=== PATIENT | male | born 1960 | race Caucasian/White ===

== ENCOUNTER 2019-08-02 12:24 | Emergency (ER) | payer MEDICARE ==
[~2019-08-02] VITALS: Ht 167.6 cm; Wt 72.0 kg
[~2019-08-02 12:24] MED LIST: CYCL-1 PO; GABA-338 PO; OMEP-84 PO; OMEP20TA23 PO; TRAM50TA2 PO
[2019-08-02 12:58] LABS: BASOPHILS % (AUTO) 0.6 % (0-1); EOSINOPHILS # (AUTO) 0.1 X10'3 (0-0.9); EOSINOPHILS % (AUTO) 1.9 % (0-6); HEMATOCRIT 47.3 % (42.0-52.0); HEMOGLOBIN 15.9 g/dl (14.0-17.9); LYMPHOCYTES # (AUTO) 1.9 X10'3 (1.1-4.8); LYMPHOCYTES % (AUTO) 24.7 % (21-51); MEAN CORPUSCULAR HEMOGLOBIN 30.8 PG (27.0-31.0); MEAN CORPUSCULAR HGB CONC 33.7 g/dL (33.0-36.5); MEAN CORPUSCULAR VOLUME 91.2 FL (78-98); MEAN PLATELET VOLUME 9.2 FL (7.4-10.4); MONOCYTES # (AUTO) 0.6 X10'3 (0-0.9); MONOCYTES % (AUTO) 8.6 % (2-12); NEUTROPHILS # (AUTO) 4.9 X10'3 (1.8-7.7); NEUTROPHILS % (AUTO) 64.2 % (42-75); PLATELET COUNT 152 X10'3 (140-440); RED BLOOD COUNT 5.19 X10'6 (4.70-6.10); RED CELL DISTRIBUTION WIDTH 13.3 % (11.5-14.5); WHITE BLOOD COUNT 7.6 X10'3 (4.5-11.0)
[2019-08-02 13:19] LABS: ALANINE AMINOTRANSFERASE 50 U/L (12-78); ALBUMIN 3.9 G/DL (3.4-5.0); ALBUMIN/GLOBULIN RATIO 1.1 (1.1-1.5); ALKALINE PHOSPHATASE 100 IU/L (46-116); ANION GAP 8 (8-16); ASPARTATE AMINO TRANSFERASE 32 U/L (10-37); BILIRUBIN,TOTAL 0.5 MG/DL (0.1-1.0); BLOOD UREA NITROGEN 21 MG/DL (7-18); BUN/CREATININE RATIO 21.6 (5.4-32.0); CALCIUM 9.2 MG/DL (8.5-10.1); CHLORIDE 104 MMOL/L (99-107); CREATININE 0.97 MG/DL (0.60-1.10); GLUCOSE 214 MG/DL (70-104); POTASSIUM 3.7 MMOL/L (3.5-5.1); SODIUM 138 MMOL/L (135-145); TOTAL CARBON DIOXIDE 25.7 MMOL/L (24-32); TOTAL PROTEIN 7.5 G/DL (6.4-8.2); eGFR 79 ML/MIN
[2019-08-02] MEDS ORDERED: normal saline 1000ML IV soln IVB ONE (13:20)
[2019-08-02 14:18] VITALS: BP 138/69
== END 2019-08-02 14:10 | disposition home or self-care (01) ==
LOC: ER 12:25
DX: I48.0 Paroxysmal atrial fibrillation (principal); G89.29 Other chronic pain; Z72.89 Other problems related to lifestyle; Z91.040 Latex allergy status; Z79.899 Other long term (current) drug therapy
CPT/HCPCS: 36415; 71045; 80053; 83735; 83880; 84484; 85025; 93005; 99285; J7030

== ENCOUNTER 2023-08-24 10:50 | Emergency (ER) | payer MEDICARE ==
[~2023-08-24] VITALS: Ht 167.6 cm; Wt 81.8 kg
[2023-08-24 11:13] VITALS: BP 146/90; PULSE 82; O2SAT 95
[2023-08-24] MEDS ORDERED: ketorolac trometh. 30mg/ml inj. IM ONE (12:15)
[2023-08-24 12:28] VITALS: RESP 16
[2023-08-24] MEDS: ketorolac tromethamine 15mg/ml inj. IM ONE (12:28)
[2023-08-24 12:29] VITALS: TEMP 97
== END 2023-08-24 12:30 | disposition home or self-care (01) ==
LOC: ER 10:50
DX: G89.29 Other chronic pain (principal); M54.50 Low back pain, unspecified; Z91.040 Latex allergy status
CPT/HCPCS: 96372; 99283; J1885